=== PATIENT | female | born 1950 | race Caucasian/White ===

== ENCOUNTER 2023-07-08 14:36 | Emergency (ER) | payer MEDICARE, MEDICAID, SELFPAY ==
[2023-07-08] VITALS (8 sets, daily range): BP systolic 102–140; BP diastolic 46–88; PULSE 71–78; RESP 19–20; TEMP 37.4–37.8; O2SAT 91–97; BMI 51.7
--- NOTE | 2023-07-08 15:30 | ECG_ITS ---
APPROVED REPORT Exam: Resting ECG HR:70 bpm ECG Measurements Heart Rate 70 AXES ME 171 P 28 QRSd 109 QRS -17 QT 387 T 16 QTc 408 Conclusion SINUS RHYTHM LOW QRS VOLTAGE IN PRECORDIAL LEADS [QRS DEFLECTION < 1.0 mV IN CHEST LEADS] POSSIBLE ANTERIOR MYOCARDIAL INFARCTION , OF INDETERMINATE AGE [30 ms Q WAVE IN V3/V4, OR R < 0.2 mV IN V4] ABNORMAL ECG UNCONFIRMED REPORT Electronically signed by : Nadeem Greer MD 07/10/2023 17:14:11
--- NOTE | 2023-07-08 15:43 | XR_ITS ---
FINAL REPORT CLINICAL HISTORY: dizziness, fall COMPARISON: None FINDINGS: A single portable view of the chest was obtained. The heart size and pulmonary vascularity are within normal limits. The mediastinum is within normal limits. No acute pulmonary abnormality is identified. The bony thorax is intact. IMPRESSION: No active cardiopulmonary disease. Reviewed, Interpreted and Dictated by Erick Gracia III, MD Transcribed by Daria York Authenticated and [facility]
[2023-07-08 15:53] LABS: Basophils % 0.1 % (0.1-2.0); Eosinophils # 0.1 K/mm3 (0.0-0.4); Eosinophils % 0.7 % (0.1-12.0); Hematocrit 31.9 % (37.0-47.0); Hemoglobin 11.8 g/dL (12.2-16.2); Lymphocytes # 1.2 K/mm3 (0.7-4.5); Lymphocytes % 8.9 % (10-50); Mean Corpuscular HGB Conc 36.9 g/dL (31.8-35.4); Mean Corpuscular Hemoglobin 33.2 pg (27.0-31.2); Mean Platelet Volume 12.3 fl (7.4-10.4); Monocytes # 0.6 K/mm3 (0.1-1.0); Monocytes % 4.5 % (1.7-9.3); Neutrophils # 11.2 K/mm3 (1.8-7.8); Neutrophils % 85.7 % (37.0-80.0); Platelet Count 111 K/mm3 (142-424); Red Blood Count 3.55 M/mm3 (4.20-5.40); Red Cell Distribution Width 14.5 % (11.5-17.5)
[2023-07-08 16:00] LABS: Alanine Aminotransferase 16 U/L (12-78); Albumin Level 4.2 g/dl (3.5-5.0); Albumin/Globulin Ratio 1.3 (1.1-1.8); Alkaline Phosphatase 68 U/L (38-126); Anion Gap 12.1 mEq/L (5-15); Aspartate Amino Transferase 30 U/L (14-36); Bilirubin,Total 0.7 mg/dl (0.2-1.3); Blood Urea Nitrogen 35 mg/dl (7-17); Calcium 9.8 mg/dl (8.4-10.2); Carbon Dioxide 33 mmol/L (22.0-30.0); Chloride 96 mmol/L (98-107); Creatinine Clearance Estimated 30 mL/min (50-200); Estimated Glomerular Filt Rate 40 ml/min (>60); GFR (African American) 48 ML/MIN (>60); Globulin 3.2 g/dL (1.3-3.2); Glucose 169 mg/dl (74-100); Potassium 3.1 mmoL/L (3.5-5.1); Sodium 138 mmol/L (136-145); Total Protein,Serum 7.4 g/dl (6.3-8.2)
[2023-07-08 16:02] LABS: Activated Partial Thrombo Time 29.3 seconds (22.8-30.6)
--- NOTE | 2023-07-08 16:12 | HMH.EDGENADL ---
Discharge Plan Disposition Patient Disposition: Home, Self-Care Chief Complaint: Dizziness Referrals Follow up/Referrals: Giselle Sarabia PA [Primary Care Provider] - See instructions Activity Restrictions/Add. Instructions Additional Instructions/Restrictions: Call your family doctor to establish care for this visit to the emergency department and schedule follow-up within 48 hours to ensure improvement. If you have any worsening of your condition or any other concerning signs or symptoms, return to the emergency department or your primary care doctor for further evaluation. Have them follow-up your blood work including electrolytes and blood counts. Clinical Impressions Clinical Impression: Dizziness, Acute dehydration Discharge ED Provider: Ever [facility] Adult HPI General Chief complaint: Dizziness Stated complaint: dizzy ao fell Time Seen by Provider: 07/08/23 15:02 Mode of Arrival: Wheelchair Source of Information: Patient Limitations: No Limitations Description of Symptoms (Recalled from ER Triage Doc. by RN): 73 yo F presents to ED with c/o urinary urgency, confusion, weakness, dizziness. pt reports symptoms began last night. History of Present Illness HPI narrative: 73-year-old female history of hypertension, hyperlipidemia, diabetes, CHF presenting with dizziness and fall. Patient states that she sat up on the side of her bed, tried to stand up, felt lightheaded, slid down onto her bed and off to the side. Did not sustain any trauma. Did not hit her head or lose consciousness. Since that time, patient states that she has felt generally weak, intermittently dizzy. Usually needs help ambulating, this is not changed, for family at bedside. Patient denies chest pain, shortness of breath, nausea or vomiting, recent illness, hearing difficulties, palpitations, PND orthopnea, or any other concerns. Related Data Allergies Allergy/AdvReac Type Severity Reaction Status Date / Time CORTISONE Allergy Unknown ELEVATED Uncoded 08/06/17 14:58 BLOOD PRESSURE PREDNISONE Allergy Unknown ELEVATED Uncoded 08/06/17 14:58 BLOOD PRESSURE [facility] Disclaimer: The information contained in this section may have been updated after the patient was seen, as this information can be updated by other users. Social History Smoking Status: Never smoker alcohol intake: never current occupational status: retired Travel in the last 8 weeks: None ROS Obtained: Yes All systems reviewed & no additional complaints except as documented Physical Exam General General appearance: alert and in no apparent distress Head Head exam: atraumatic and normocephalic Eye Eye exam: Present normal appearance, PERRL and EOMI ENT ENT exam: Present mucous membranes moist Neck Neck exam: Present normal inspection, full ROM and trachea midline Respiratory Respiratory exam: Present normal lung sounds bilaterally; Absent respiratory distress, wheezes, stridor, accessory muscle use or prolonged expiratory phase Cardiovascular Cardiovascular exam: Present regular rate and normal rhythm Abdominal Exam Abdominal exam: Present soft; Absent distention, tenderness, guarding, rebound, rigidity or normal bowel sounds Extremities Exam Extremities exam: Present edema (nonpitting) Neurological Exam Neurological exam: Present alert, oriented X3, CN II-XII intact and normal gait; Absent motor sensory deficit Skin Skin exam: Present warm and dry; Absent diaphoresis or erythema Medical Decision Making Medical Records Medical records reviewed: Yes I reviewed the patient's medical records. Teto Inquiry Pt receiving controlled substance: No Teto was queried for this patient: No Vital Signs: 07/08/23 14:37 07/08/23 16:54 07/08/23 17:12 Temperature 100.0 F H Temperature Source Oral Pulse Rate 71 72 Pulse Rate [Left Radial] 74 Respiratory Rate 19 20 Blood Pressure 109/46 L 131/71 Blood Pressure [Right Arm] 1
[2023-07-08 16:13] LABS: MANUAL DIFFERENTIAL MANUAL DIFFERENTIAL (MANUAL DIFF)
[2023-07-08 16:18] LABS: T4 (Thyroxine) 7.2 ug/dl (5.53-11.0)
[2023-07-08 16:26] LABS: VBG Base Excess 5.9 mmol/L (-2.4-2.3); VBG HCO3 30.8 mmol/L (23-30); VBG Oxygen Saturation 72.3 % (50-70); VBG PH 7.39 mmol/L (7.31-7.41); VBG PO2 38.8 mmol/L (28-40); VBG Total CO2 32.3 mmol/L (23-27)
--- NOTE | 2023-07-08 16:28 | PC.NURSE ---
Pt. ambulated and from bathroom with x 2 assistance.
[2023-07-08 16:30] LABS: Acetone, Serum (Rapid) None Detected (None Detect)
[2023-07-08 16:31] LABS: VBG PCO2 51.5 mmol/L (35-51)
[2023-07-08 16:31] LABS: Thyroid Stimulating Hormone 1.44 uIU/mL (0.465-4.68)
[2023-07-08 16:34] LABS: Creatine Kinase 52 U/L (30-135)
--- NOTE | 2023-07-08 16:35 | PC.NURSE ---
Medic @ BS obtaining
[2023-07-08 16:39] LABS: Microscopic, Urine URINE MICROSCOPIC (MICROSCOPIC)
[2023-07-08 16:41] LABS: Appearance,Urine CLEAR (Clear); Bilirubin,Urine Negative (Negative); Blood, Urine Negative (Negative); Color,Urine YELLOW (Yellow); Glucose,Urine (UA) Negative (Negative); Ketones,Urine Negative (Negative); Leukocyte Esterase,Urine Negative (Negative); Nitrate,Urine Negative (Negative); PH,Urine 5.5 (5.0-8.5); Protein,Urine Negative (Negative); Specific Gravity, Urine 1.015 (1.005-1.030); Urobilinogen,Urine 0.2 EU/dl (0.2)
[2023-07-08 16:42] LABS: Troponin I < 0.01 ng/ml (0.00-0.034)
[2023-07-08 16:46] LABS: Eosinophils % 1 % (0-3); Lymphocytes % 11 % (10-50); Monocytes % 2 % (2-9); Neutrophils % 86 % (42-76); Platelet Estimate Slight Decrease; RBC Morphology Normal; Total Cells Counted 100
[2023-07-08 16:47] LABS: Lactic Acid 1.4 mmol/L (0.7-2.1)
[2023-07-08 16:58] LABS: Bacteria,Urine Trace /lpf; WBC,Urine Occasional #/hpf (0-3)
--- NOTE | 2023-07-08 16:58 | PC.NURSE ---
COVID/FLU SWAB SENT TO LAB
[2023-07-08 17:09] LABS: Coronavirus 19, PCR Not Detected (NotDetected); Influenza A, PCR Not Detected (NotDetected); Influenza B, PCR Not Detected (NotDetected)
--- NOTE | 2023-07-08 17:09 | PC.NURSE ---
Rounded on patient; fall risk bracelet and high fall risk star placed on patients bed. Call light within reach of patient
[2023-07-08 17:14] LABS: NT Pro Brain Natriuretic Pep. 581 pg/mL (0-125)
--- NOTE | 2023-07-08 17:24 | PC.NURSE ---
Unsuccessful attempts x 2 for 2nd blood draw; lab aware to come stick
[2023-07-08 20:12] LABS: Troponin I < 0.01 ng/ml (0.00-0.034)
[2023-07-08 23:20] LABS: POC Glucose,Bedside 188 (70-110)
== END 2023-07-08 20:48 | disposition home or self-care (01) ==
PROVIDERS: Emergency Provider Emergency Medicine; PCP Nurse Practitioner Family
DX: E86.0 Dehydration (principal); E87.6 Hypokalemia; R42 Dizziness and giddiness; W06.XXXA Fall from bed, initial encounter; I11.0 Hypertensive heart disease with heart failure; I50.9 Heart failure, unspecified; E78.5 Hyperlipidemia, unspecified; E11.9 Type 2 diabetes mellitus without complications
CPT/HCPCS: 71045; 80053; 81001; 82009; 82550; 82803; 82962; 83605; 83880; 84436; 84443; 84484; 85007; 85025; 85730; 87040; 87636; 93005; 96360; 99284

== ENCOUNTER 2025-03-24 11:37 | Emergency (ER) | payer MEDICARE, MEDICAID, SELFPAY ==
[2025-03-24 11:39] VITALS: BP 111/63; PULSE 82; RESP 18; TEMP 36.9; O2SAT 92; BMI 246.4
--- OUTSIDE RECORDS SUMMARY | 2025-03-24 11:45 | XMS_ITS | Clinical Summary ---
Author Organization [facility] [place] Address [address] [place] [address] Care Team Providers Care Professional Wrestler Name Role Phone Giselle Sarabia APRN Primary Care Provider [phone] Allergies Active Allergy Reactions Criticality Noted Date Comments Enoch Inhibitors Angioedema High 07/26/2023 Took with Augmentin caused anaphylaxis per patient and daughter Amoxicillin-Pot Clavulanate Angioedema High 07/26/2023 Unable to determine if ENOCH inhib vs Augmentin Penicillins Other - please document in the comment field Low 01/15/2024 Sulfa Drugs Angioedema High 01/15/2024 Took with Augmentin and an enoch inhibitor caused anaphylaxis per patient and daughter Medications celecoxib (CeleBREX) 100 MG capsule Take 1 capsule (100 mg) by mouth in the morning. Active potassium chloride CR (Klor-Con) 10 MEQ ER tablet Take 1 tablet (10 mEq) by mouth in the morning. Active nebivolol (Bystolic) 5 MG tablet Take 1 tablet (5 mg) by mouth in the morning. Active allopurinol (Zyloprim) 300 MG tablet Take 1 tablet (300 mg) by mouth in the morning. Active buPROPion XL (Wellbutrin XL) 150 MG 24 hr tablet Take 1 tablet (150 mg) by mouth every morning. Do not crush, chew, or split. Active Multiple Vitamin (multivitamin) tablet Take 1 tablet by mouth in the morning. Active acetaminophen (Tylenol 8 Hour) 650 MG ER tablet Take 1 tablet (650 mg) by mouth every 8 hours as needed for mild pain. Do not crush, chew, or split. Active rOPINIRole (Requip) 1 MG tablet Take 1 tablet (1 mg) by mouth in the morning and 1 tablet (1 mg) in the evening and 1 tablet (1 mg) before bedtime. Active atorvastatin (Lipitor) 10 MG tablet Take 1 tablet (10 mg) by mouth nightly. Active desvenlafaxine succinate er (Pristiq) 25 MG 24 hr tablet Take 1 tablet (25 mg) by mouth in the morning. Active gabapentin (Neurontin) 600 MG tablet Take 1 tablet (600 mg) by mouth in the morning and 1 tablet (600 mg) in the evening and 1 tablet (600 mg) before bedtime. Active insulin glargine (Lantus SoloStar, Basaglar) 100 UNIT/ML injection pen Inject 45 Units under the skin daily. Active bumetanide (Bumex) 2 MG tablet Take 0.5 tablets (1 mg) by mouth daily. 15 tablet Active pen needle, diabetic 31G X 5 MM misc Use as directed with insulin pen. 100 each 11 Active insulin lispro 100 UNIT/ML injection pen Inject 14 Units under the skin 3 (three) times a day with meals. 15 mL 3 5 Active Blood Glucose Monitoring Suppl device Test three times daily 1 each 5 Active glucose blood test strip Test three times daily 300 strip 11 5 Active Lancets misc Test three times daily 300 each 11 5 Active Alcohol Sheets (Alcoh-Wipe) sheet Use as directed. 300 each 11 5 Active insulin lispro 100 UNIT/ML injection pen Inject under the skin 3 (three) times daily with meals per correction scale as follows: blood sugar 150-199 use 2 unit, 200-249 use 4 units, 250-299 use 6 units, 300-349 use 8 units, 350-399 use 10 units, >399 use 12 units and call provider. 5 Active Active Problems Problem Noted Date Diagnosed Date Altered mental status 10/14/2024 Sepsis, unspecified organism 10/12/2024 Abscess 10/12/2024 Obesity (BMI 30-39.9) 10/12/2024 Hyperosmolar hyperglycemic state (HHS) Acute encephalopathy 10/12/2024 RLS (restless legs syndrome) 10/12/2024 Diabetic polyneuropathy asso ciated with type 2 diabetes mellitus 10/12/2024 Sepsis 10/12/2024 Wound infection after surgery 04/22/2024 Diverticulitis of large inte jaskaran with abscess without bleeding 03/11/2024 Diverticulitis of large inte jaskaran with perforation and abscess without bleeding 03/03/2024 WING on CPAP 02/04/2024 Overview (02/04/2024): AHI 28 Hypertension 02/04/2024 Colovesical fistula 01/15/2024 Gout 09/10/2023 Class III obesity with body mass index (BMI) of 40.0 or higher 07/24/2023 Angioedema of tongue 07/24/2023 Diverticulitis 07/19/2023 Type 2 diabetes mellitus 09/26/2022 Viral bronchitis 08/22/2022 Rheumatoid arthritis 06/26/2022 Vitamin D deficiency 05/04/2022 Hyperlipidemia 05/04/2022 Resolved Problems Problem Noted Date Diagnosed Date Resolved Date Wound infection 05/19/2024 05/19/2024 Family History Medical History Relation Name Comments Cancer Father Brain Aneurysm Mother Anesthesia problems Neg Hx Malig Hyperthermia Neg Hx Relation Name Status Comments Father Mother Social History Tobacco Use Types Packs/Day Years Used Date Smoking Tobacco: Never Smokeless Tobacco: Never Tobacco Cessation:Counseling Given: Yes Alcohol Use Standard Drinks/Week Comments Never 0 (1 standard drink = 0.6 oz pur e alcohol) Humiliation, Afraid, Rape, and Kick questionnair e Answer Date Recorded Within the last year, have y ou been afraid of your partner or ex-partner? No 10/12/2024 Within the last year, have y ou been humiliated or emotionally abused in other ways by your partner or ex-partner? No Within the last year, have y ou been kicked, hit, slapped, or otherwise physically hurt by your partner or ex-partner? No 10/12/2024 Within the last year, have y ou been raped or forced to have any kind of sexual activity by your partner or ex-partner? No 10/12/2024 Social Connection and Isolation Panel Answer Date Recorded In a typical week, how many times do you talk on the phone with family, friends, or neighbors? More than three times a week 10/12/2024 How often do you get togethe r with friends or relatives? More than three times a week 10/12/2024 How often do you attend [facility] or caodaism services? More than 4 times per year 10/12/2024 Active Member of Clubs or Organizations Not on f ile 10/12/2024 Attends Club or Organization Meetings Not on alicia e 10/12/2024 Marital Status Not on file 10/12/2024 AUDIT-C Answer Date Recorded Q1: How often do you have a drink containing alcohol? Never 10/12/2024 Q2: How many drinks containi ng alcohol do you have on a typical day when you are drinking? Patient does not drink Q3: How often do you have si x or more drinks on one occasion? Never 10/12/2024 Overall Financial Resource Strain (CARDIA) Answe r Date Recorded How hard is it for you to pa y for the very basics like food, housing, medical care, and heating? Not hard at all 10/12/2024 [facility] - Occupational Stress Questionnaire Answer Date Recorded Do you feel stress - tense, restless, nervous, or anxious, or unable to sleep at night because your mind is troubled all the time - these days? To some extent 07/25/2023 Exercise Vital Sign Answer Date Recorde d On average, how many days pe r week do you engage in moderate to strenuous exercise (like a brisk walk)? 0 days 10/12/2024 On average, how many minutes do you engage in exercise at this level? 0 min 10/12/2024 Hunger Vital Sign Answer Date Recorded Within the past 12 months, y ou worried that your food would run out before you got the money to buy more. Never true 10/12/19 25 Within the past 12 months, t he food you bought just didn't last and you didn't have money to get more. Never true 10/12/2024 PRAPARE - Transportation Answer Date Re corded In the past 12 months, has l ack of transportation kept you from medical appointments or from getting medications? No 09/20 In the past 12 months, has l ack of transportation kept you from meetings, work, or from getting things needed for daily living? No 10/12/2024 Housing Stability Vital Sign Answer Jona e Recorded In the last 12 months, was t here a time when you were not able to pay the mortgage or rent on time? No 05/19/2024 In the last 12 months, how many places have you lived? 1 05/19/2024 In the last 12 months, was t here a time when you did not have a steady place to sleep or slept in a long-term (including now)? No 05/19/2024 Housing Stability Vital Sign Answer Jona e Recorded In the last 12 months, was t here a time when you were not able to pay the mortgage or rent on time? No 10/12/2024 In the past 12 months, how m any times have you moved where you were living? 1 10/12/2024 Homeless in the Last Year Not on file 2024 CAGE ASSESSMENT Answer Date Recorded Cage unable to access Not on file 04/28/2024 Cage max number of drinks Not on file 2023 Cage Beverages a week Not on file 04/28/2024 Have you ever felt you should CUT down on your d rinking? 0 04/28/2024 Have you been ANNOYED by people criticizing your drinking? 0 04/28/2024 Have you felt GUILTY about your drinking? 0 04/28/2024 Have you had a drink first t lisa in the morning ([employer]) to steady your nerves or to get rid of a hangover? 0 04/28/2024 CAGE Questionnaire Score 0 024 Utilities Answer Date Recorded In the past 12 months has th e electric, gas, oil, or water company threatened to shut off services in your home? No 10/12/2024 Comments No Sex and Gender Information Value Date Recorded Sex Assigned at Female 10/11/2024 6:10 PM EST Legal Sex Female 8:32 PM EDT Gender Identity Not on file Sexual Orientation Not on file Last Filed Vital Signs Vital Sign Reading Time Taken Comments Blood Pressure 155/81 10/27/2024 12:49 PM EDT Pulse 71 10/27/2024 12:49 PM EDT Temperature 36.6 C (97.8 F) 10/27/2024 12:49 PM EDT Respiratory Rate 16 10/27/2024 12:49 PM EDT Oxygen Saturation 98% 10/27/2024 12:49 PM EDT Inhaled Oxygen Concentration - - Weight 112 kg (246 lb 12.8 oz) 10/27/2024 12:49 PM EDT Height 157.5 cm (5' 2 ) 10/27/2024 12:49 PM EDT Body Mass Index 45.14 10/27/2024 12:49 PM EDT Plan of Treatment Health Maintenance Due Date Last Done Comments [facility]-Bone Density Scan 1949 [facility]-Depression Screening 1949 [facility]-Medicare Annual Wellness (AWV) 1950 [facility]-Infant/Child/Adol SDOH Screenings 1949 Diabetes: Dental Exam 1959 CT Colonography 1994 Colonoscopy 1994 FIT-DNA 1994 FIT 1994 FOBT 1994 Sigmoidoscopy 1994 [facility]-Colorectal Cancer Screening 1994 [facility]-Zoster Vaccines (1 of 2) 1999 [facility]-DTaP,Tdap,and Td Vaccines (2 - Td or Tdap) 01/21/2023 01/21/2013 [id number] Vaccine (3 - season) 2024 11/18/2020, 10/18/2020 [facility]-RSV Vaccine: 60+ Years or (1 - 1-dose 75+ series) 2024 [facility]-Diabetes: Hemoglobin A1C 01/11/2025, 04/15/2024, 07/24/2023 [facility]- SDOH Screenings 04/11/2025 [facility]-Adult SDOH Screenings 04/11/2025 10/12/2024 [facility]-Influenza Vaccine (#1) 04/19/202506/10, 06/26/2022, 07/02/2019 [facility]-Pneumococcal Vaccine: 50+ Years Completed 04/22/2020, 07/27/2016, 06/24/2015 [facility]-Hepatitis C Screening Completed 07/24/2023 [facility]-Obesity Intervention Completed 025, 10/11/2024, 10/11/2024, Additional history exists HPV Vaccines Aged Out No longer eligi ble based on patient's age to complete this topic [facility]-HIB Vaccines Aged Out No longer e ligible based on patient's age to complete this topic [facility]-Hepatitis A Vaccines Aged Out No longer eligible based on patient's age to complete this topic UKY-IPV Vaccines Aged Out No longer e ligible based on patient's age to complete this topic [facility]-Rotavirus Vaccines Aged Out No lo nger eligible based on patient's age to complete this topic Medical Devices Implanted Type Area Circus Supervisor Device Identifier Shelf Expiration Date Model / Serial / Lot Knee Knee Bilateral: Knee Procedures Procedure Name Priority Date/Time Associated Diagnosis Comments HEMOGLOBIN A1C Routine 10/12/2024 5:13 AM EST ACUTE HEPATITIS PANEL Routine 07/24/2023 4:43 PM EST from Last 3 Months or Most Recently Relevant to Health Maintenance Results * (ABNORMAL) Hemoglobin A1c (10/12/2024 5:13 AM EST) Hemoglobin A1c 9.3(H) <5.7 % 10/12/2024 6:21 AM EST [facility] Blood Venous blood specimen / Unknown Venipuncture / Unknown 10/12/2024 5:13 AM EST 10/12/2024 5:19 AM EST Narrative [facility] - 10/12/2024 6:21 AM EST HA1C Interpretive Data: Diagnosis of Diabetes: Diabetic > or = 6.5% Pre-diabetic 5.7 to 6.4% Non-diabetic < or = 5.6% Glycemic Targets for Type I and Type II Diabetics: Non- Adults <7.0% Adults <6.0% Children and Adolescents <7.5% Source: [place] Diabetes Association. Standards of medical care in diabetes,2017. Diabetes Care.2017:40 (suppl 1):S1-S135. HbA1c assay performed by an ion-exchange chromatography method that is certified traceable to the DCCT. Bradley Yi APRN LAB BLOOD ORDERABLES Final Result [facility] [address] [place] [address] * Acute Hepatitis Panel (07/24/2023 4:43 PM EST) Hepatitis B Surf Antigen Negative Negative 07/24/2023 7:24 PM EST [facility] Hepatitis C Antibody Negative Negative 07/24/2023 7:24 PM EST [facility] Hepatitis A Antibody IgM Negative Negative 07/24/2023 7:24 PM EST [facility] Hepatitis B Core Antibody IgM Negative Negative 07/24/2023 7:24 PM EST [facility] Blood Venous blood specimen / Unknown Venipuncture / Unknown 07/24/2023 4:43 PM EST 07/24/2023 4:50 PM EST Giselle Wilkins APRN, DNP LAB BLOOD ORDERABLE S Final Result Performing Organization Address City/[facility] de Phone Number [facility] [address] [place] [address] from Last 3 Months or Most Recently Relevant to Health Maintenance Insurance [facility] MEDICARE Advance Directives * Full Code (Latest Code Status on File) Date Activated Date Inactivated Comments 10/12/2024 1:36 AM 10/19/2024 6:54 PM Question Answer Comments Patient has decision-making capacity? No Healthcare Surrogate: Adult child of the patient Name of Healthcare Surrogate: son Mervin Black * Full Code Date Activated Date Inactivated Comments 05/19/2024 1:58 AM 05/19/2024 4:48 PM Question Answer Comments Patient has decision-making capacity? Yes * Full Code Date Activated Date Inactivated Comments 04/22/2024 5:56 PM 04/29/2024 7:13 PM Question Answer Comments Patient has decision-making capacity? Yes * Full Code Date Activated Date Inactivated Comments 04/15/2024 8:24 PM 04/19/2024 1:58 PM Question Answer Comments Patient has decision-making capacity? Yes * Full Code Date Activated Date Inactivated Comments 04/15/2024 6:53 PM 04/15/2024 8:24 PM Question Answer Comments Patient has decision-making capacity? Yes Care Teams Professional Wrestler Relationship Specialty Start Date End Date Giselle Sarabia APRN [address] [place] [address] PCP - General 08/06/23
--- OUTSIDE RECORDS SUMMARY | 2025-03-24 11:45 | XMS_ITS | Clinical Summary ---
Author Organization [facility] Address [address] [place] [address] Care Team Providers Care Maintenance Of Way Superintendent Name Role Phone CornellGiselle APRN Primary Care Prov ider Allergies Active Allergy Reactions Criticality Noted Date Comments Enoch Inhibitors Angioedema High 07/26/2023 Amoxicillin-Pot Clavulanate Angioedema High 11/22/19 24 Medications albuterol (PROVENTIL) (2.5 MG/3ML) 0.083% nebulizer solution 3 Active benazepril (LOTENSIN) 20 MG tablet 3 Active bumetanide (BUMEX) 2 MG tablet Take 1 tablet by mouth Daily. 3 Active celecoxib (CeleBREX) 100 MG capsule Take 1 capsule by mouth Daily. 3 Active glipizide (GLUCOTROL XL) 10 MG 24 hr tablet Take 1 tablet by mouth Daily. 3 Active hydroCHLOROthia zide (HYDRODIURIL) 25 MG tablet Take 1 tablet by mouth Daily. 3 Active hydroxychloroqu ine (PLAQUENIL) 200 MG tablet Take 1 tablet by mouth 2 (Two) Times a Day. 3 Active levocetirizine (XYZAL) 5 MG tablet Take 1 tablet by mouth Every Evening. 3 Active metFORMIN (GLUMETZA) 1000 MG (MOD) 24 hr tablet Take 1 tablet by mouth Daily With Breakfast. 3 Active nebivolol (BYSTOLIC) 5 MG tablet Take by mouth Daily. 3 Active potassium chloride 10 MEQ CR tablet Take 1 tablet by mouth Daily. 3 Active Ozempic, 0.25 or 0.5 MG/DOSE, 2 MG/3ML solution pen-injector 3 Active pregabalin (LYRICA) 150 MG capsule Take 1 capsule by mouth 2 (Two) Times a Day. 3 Active HumaLOG KwikPen 100 UNIT/ML solution pen-injector 3 Active amLODIPine (NORVASC) 5 MG tablet Take 1 tablet by mouth Daily. 3 Active buPROPion XL (WELLBUTRIN XL) 150 MG 24 hr tablet Take 1 tablet by mouth Daily. Active allopurinol (ZYLOPRIM) 300 MG tablet Take 1 tablet by mouth Daily. Active Lantus SoloStar 100 UNIT/ML injection pen Inject 70 Units under the skin into the appropriate area as directed Every Night. 4 Active hydrOXYzine (ATARAX) 25 MG tablet Take 1 tablet by mouth Daily. Active Active Problems Problem Noted Date Diagnosed Date Hyperlipidemia Hypertension Sleep apnea Overview (02/13/2023): AHI 28 Family History Medical History Relation Name Comments Throat cancer Father 72 Cerebral aneurysm Mother 52 Relation Name Status Comments Brother 2 Father 72 Mother 52 Social History Tobacco Use Types Packs/Day Years Used Date Smoking Tobacco: Never Passive Smoke Exposure: Never Smokeless Tobacco: Never Tobacco Cessation:Counseling Given: Not Answered Alcohol Use Standard Drinks/Week Comments Never 0 (1 standard drink = 0.6 oz pur e alcohol) Abuse Screen Answer Date Recorded Unsafe at Home or Work/School Not on file Feels Threatened by Someone? Not on file 04/2023 Does Anyone Keep You from Co ntacting Others or Doint Things Outside the Home? Not on file 05/27/2023 Physical Sign of Abuse Present Not on file 1 Housing Stability Answer Date Recorded Current Living Arrangements Not on file 04/2023 Potentially Unsafe Housing Conditions Not on alicia e 05/27/2023 Family and Community Support Answer Jona e Recorded Help with Day-to-Day Activities Not on file 05/27/2023 Lonely or Isolated Not on file 05/27/2023 Employment Answer Date Recorded Do you want help finding or keeping work or a gena b? Not on file 05/27/2023 Disabilities Answer Date Recorded Concentrating, Remembering, or Making Decisions Difficulty Not on file 05/27/2023 Doing Errands Independently Difficulty Not on fi le 05/27/2023 Education Answer Date Recorded Help with school or training? Not on file Preferred Language Not on file 05/27/2023 Comments Unknown Sex and Gender Information Value Date Recorded Sex Assigned at Not on file Legal Sex Female 11:28 AM EDT Gender Identity Not on file Sexual Orientation Not on file Last Filed Vital Signs Vital Sign Reading Time Taken Comments Blood Pressure 120/68 11/22/2023 11:17 AM EDT Pulse 78 11/22/2023 11:17 AM EDT Temperature - - Respiratory Rate - - Oxygen Saturation 96% 11/22/2023 11:17 AM EDT Inhaled Oxygen Concentration - - Weight 118 kg (260 lb 6.4 oz) 11/22/2023 11:17 A M EDT Height 165.1 cm (5' 5 ) 11/22/2023 11:17 AM EDT Body Mass Index 43.33 11/22/2023 11:17 AM EDT Plan of Treatment Health Maintenance Due Date Last Done Comments DXA SCAN 1949 LIPID PANEL 1949 DIABETIC EYE EXAM 1959 DIABETIC FOOT EXAM 1959 URINE MICROALBUMIN-CREATININ E RATIO (uACR) 1959 COLOGUARD 1994 COLON CANCER SCREENING 5 YEA R SIGMOIDOSCOPY 1994 COLONOSCOPY [address] CANCER SCREENING 1994 CT COLONOGRAPHY 1994 FECAL OCCULT BLOOD TEST 1994 FIT Testing (1 year) 1994 ZOSTER VACCINE (1 of 2) 1999 ANNUAL WELLNESS VISIT 01/15/2023 TDAP/TD VACCINES (2 - Td or Tdap) 01/21/2023 013 COVID-19 Vaccine (3 - 2023-2 5 season) 2024 11/18/2020, 10/18/2020 RSV Vaccine - Adults (1 - 1- dose 75+ series) 2024 HEMOGLOBIN A1C 04/11/2025 10/12/2024, 08/2 03/2024, 07/24/2023, Additional history exists INFLUENZA VACCINE 05/19/2025 06/10/2023, , 07/02/2019 Pneumococcal Vaccine 50+ Completed 020, 07/27/2016, 06/24/2015 HEPATITIS C SCREENING Completed 07/24/2023 Insurance [facility] MEDICAID [employer] MEDICARE ADVANTAGE Care Teams Maintenance Of Way Superintendent Relationship Specialty Start Date End Date Giselle Sarabia APRN [address] [place] [address] PCP - General Family Medicine 11/06/23
--- NOTE | 2025-03-24 12:00 | ED_ITS ---
<Statement entered by Jonnie Saini MD - 03/24/25 16:06> I consulted the TORIN, and we discussed the complexity of the problems being addressed. I approved the treatment and management plan for this patient's care in the emergency department, thus performing a substantial portion of the medical decision making. Jef Saini MD Discharge Plan Disposition Patient Disposition: Home, Self-Care Condition: Good Prescriptions Prescriptions: No Action gabapentin 600 mg tablet 600 mg PO TID Patient Comments: TAKE 1 TABLET BY MOUTH 3 TIMES A DAY ropinirole 1 mg tablet 1 mg PO TID Patient Comments: TAKE 1 TABLET 3 TIMES A DAY BY ORAL ROUTE DIRECTED FOR 90 DAYS, FOR RESTLESS LEGS. trazodone 50 mg tablet 50 mg PO ACHS Patient Comments: TAKE 1 TABLET BY MOUTH EVERY DAY AT BEDTIME FOR 30 DAYS atorvastatin 10 mg tablet 10 mg PO DAILY Patient Comments: TAKE 1 TABLET BY MOUTH EVERYDAY AT BEDTIME atorvastatin 10 mg tablet 10 mg PO DAILY Patient Comments: TAKE 1 TABLET BY MOUTH EVERYDAY AT BEDTIME alendronate 70 mg tablet 70 mg PO WEEKLY Patient Comments: TAKE 1 TABLET BY MOUTH EVERY WEEK tramadol 50 mg tablet 50 mg PO BID Patient Comments: TAKE 1 TABLET BY MOUTH TWICE A DAY cyanocobalamin (vitamin B-12) 1,000 mcg/mL solution 1,000 mcg SQ MONTHLY Patient Comments: INJECT 1 ML BY SUBCUTANEOUS ROUTE EVERY MONTH allopurinol 300 mg tablet 300 mg PO DAILY Patient Comments: TAKE 1 TABLET EVERY DAY BY ORAL ROUTE DIRECTED FOR 90 DAYS, FOR GOUT. allopurinol 300 mg tablet 300 mg PO DAILY Patient Comments: TAKE 1 TABLET EVERY DAY BY ORAL ROUTE DIRECTED FOR 90 DAYS, FOR GOUT. celecoxib 100 mg capsule 100 mg PO DIRECTED Patient Comments: TAKE 1 CAPSULE BY MOUTH EVERY DAY DIRECTED Novolin N FlexPen 100 unit/mL (3 mL) insulin pen 100 unit SQ TID Patient Comments: INJECT 20 UNITS 3 TIMES A DAY BY SUBCUTANEOUS ROUTE DIRECTED FOR 30 DAYS, FOR WITH MEALS. potassium chloride 10 mEq tablet,ER particles/crystals 10 meq PO DAILY Patient Comments: TAKE 1 TABLET BY MOUTH EVERY DAY (DME) pen needle, diabetic [BD Ultra-Fine Mini Pen Needle] 31 gauge x 3/16 needle MISCELLANEOUS dapagliflozin propanediol [Farxiga] 10 mg tablet 10 mg PO DAILY Patient Comments: TAKE 1 TABLET EVERY DAY BY MOUTH FOR 90 DAYS FOR DIABETES/KIDNEYS. Kerendia 20 mg tablet 20 mg PO DAILY Patient Comments: TAKE 1 TABLET EVERY DAY BY MOUTH FOR 90 DAYS, FOR DIABETES/KIDNEYS. Kerendia 20 mg tablet 20 mg PO DAILY Patient Comments: TAKE 1 TABLET EVERY DAY BY MOUTH FOR 90 DAYS, FOR DIABETES/KIDNEYS. Mounjaro 2.5 mg/0.5 mL pen injector 2.5 mg SQ WEEKLY Patient Comments: INJECT 0.5 ML SUBCUTANEOUSLY ONE TIME PER WEEK FOR 28 DAYS Mounjaro 5 mg/0.5 mL pen injector 5 mg SQ WEEKLY Patient Comments: INJECT 0.5 ML SUBCUTANEOUSLY ONE TIME PER WEEK FOR 28 DAYS Referrals Follow up/Referrals: Kanu Fuentes MD [Staff Physician, Pain Management] - See instructions Sepideh Lawrence PA [Primary Care Provider, Medical] - See instructions Nikolai Alegria MD [Referring, Medical] - See instructions Hector Simmons DO [Staff Physician, Family Practice] - See instructions Activity Restrictions/Add. Instructions Additional Instructions/Restrictions: Please return to the emergency department with any worsening signs or symptoms, please follow-up with new PCP, orthopedic physician, please utilize ibuprofen Tylenol rest, ice, as needed for symptomatic relief of your left shoulder pain. Clinical Impressions Clinical Impression: Localized osteoarthritis of left shoulder, Cervical spondylosis without myelopathy Instructions Patient Instructions: Shoulder Tendinopathy, DI for Shoulder Pain Print Language Print Language: Beninese Discharge ED Provider: Jonnie Saini Adult HPI General Chief complaint: PAIN Stated complaint: L arm pain/swelling Time Seen by Provider: 03/24/25 11:56 Mode of Arrival: Ambulatory Source of Information: Patient Description of Symptoms (Recalled from ER Triage Doc. by RN): PT presents for evaluation of left arm pain that she has had for 2 weeks. Pt reports she had a steriod shot yesterday by her PCP and was supposed to be getting evaluated for a DVT but she has not had the orders placed by her provider yet. Pt has limited ROM, strong pulse, brisk cap refill. Pt rates pain as a 10/10 History of Present Illness HPI narrative: 74-year-old female presents the emergency department with left arm pain and swelling for the last 2 weeks, patient states that she was seen by her PCP for this yesterday, had what sounds like an IM steroid injection with little no relief, is supposedly being evaluated for a left upper extremity DVT, she has not yet had the ultrasound orders placed yet, patient states that she is experiencing significant pain, she is taking some medication at home that starts with a D , however she is unsure of what this medication is. She is somewhat of a poor historian, but denies any fever chills chest pain, shortness of breath, did have what sound like an EKG performed at her PCPs office yesterday which yielded normal results, she denies any trauma or injury per history, denies any numbness or tingling, states the pain will start in the left shoulder/neck/trapezius region radiate down to her bicep region/cubital fossa area, difficulty with pain limiting range of motion, she denies any abdominal pain nausea vomiting constipation diarrhea, denies any urinary type symptomatology, she is a non-smoker, denies any alcohol or drug use, she admits to past medical history consistent with T2DM, hyperlipidemia, hypertension, she admits to what sounds like a partial colectomy several years ago for unknown reason. Please note that above description of symptoms, in this electronic medical record under categorization of recalled from ER triage doctor by RN are reflective of an initial nursing assessment, however, is not reflective of my full history and physical exam that was personally taken and clarified. Consequentially, this preceding description of symptoms, which may include the patient's categorized chief complaint in the EMR, do not reflect my personal clinical impression, and the ultimate description of history of present illness and patient stated complaints should be deferred to this section of the note. Unless stated otherwise or congruent with this section of the note, additional signs, symptoms, or incongruence should be interpreted as inaccurate with my clinical impression. Onset (ago): week(s) Related Data Home Medications ?Medication ?Instructions ?Recorded ?Confirmed alendronate 70 mg tablet 70 mg PO WEEKLY 03/24/2502/10 allopurinol 300 mg tablet 300 mg PO DAILY 03/24/2502/10 allopurinol 300 mg tablet 300 mg PO DAILY 03/24/2502/10 atorvastatin 10 mg tablet 10 mg PO DAILY 03/24/2502/10 atorvastatin 10 mg tablet 10 mg PO DAILY 03/24/2502/10 celecoxib 100 mg capsule 100 mg PO DIRECTED 03/24/25 cyanocobalamin (vitamin B-12) 1,000 mcg SQ MONTHLY 02/1003/24/25 1,000 mcg/mL injection solution dapagliflozin propanediol 10 mg 10 mg PO DAILY 5 03/24/25 tablet (Farxiga) finerenone 20 mg tablet (Kerendia) 20 mg PO DAILY 02/1003/24/25 finerenone 20 mg tablet (Kerendia) 20 mg PO DAILY 02/1003/24/25 gabapentin 600 mg tablet 600 mg PO TID 03/24/2503/24 insulin NPH isoph U-100 human 100 100 unit SQ TID 02/1003/24/25 unit/mL (3 mL) subcutaneous pen (Novolin N FlexPen) pen needle, diabetic 31 gauge x 03/24/25 03/24/2511/01 potassium chloride 10 mEq 10 meq PO DAILY 03/24/2502/10 tablet,extended release(part/cryst) ropinirole 1 mg tablet 1 mg PO TID 03/24/25 5 tirzepatide 2.5 mg/0.5 mL 2.5 mg SQ WEEKLY 03/24/25 subcutaneous pen injector (Mounjaro) tirzepatide 5 mg/0.5 mL 5 mg SQ WEEKLY 03/24/2502/10 subcutaneous pen injector (Mounjaro) tramadol 50 mg tablet 50 mg PO BID 03/24/25 trazodone 50 mg tablet 50 mg PO ACHS 03/24/2503/24 Allergies Allergy/AdvReac Type Severity Reaction Status Date / Time CORTISONE Allergy Unknown ELEVATED Uncoded 08/06/17 14:58 BLOOD PRESSURE PREDNISONE Allergy Unknown ELEVATED Uncoded 08/06/17 14:58 BLOOD PRESSURE [facility] Disclaimer: The information contained in this section may have been updated after the patient was seen, as this information can be updated by other users. Social History (Updated 07/08/23 @ 20:34 by Ever Parisi MD) Smoking Status: Never smoker alcohol intake: never current occupational status: retired Travel in the last 8 weeks?: None Have you lived/traveled outside [place] in past 30 days?: No Contact w/someone who lives/traveled outside US past 30 days?: No Exposure to someone with infectious disease in past 14 days?: No Do you have a fever (greater than 100.4 F or 38 C)?: No Have you tested positive for COVID-19?: No Exposed to someone with COVID-19 in past 14 days?: No Do you have a sore throat?: No Do you have a cough?: No Do you have any weakness?: No Do you have any diarrhea?: No Are you experiencing any unusual bleeding?: No Do you have any muscle aches/pain?: Yes Do you have any abdominal pain?: No Are you experiencing loss of taste or smell?: No ROS Obtained: Yes All systems reviewed & no additional complaints except as documented Physical Exam General General appearance: alert and in no apparent distress Head Head exam: atraumatic and normocephalic Eye Eye exam: Present PERRL and EOMI ENT ENT exam: Present mucous membranes moist Neck Neck exam: Present normal inspection Chest Chest inspection: Present normal inspection and symmetric chest wall rise Respiratory Respiratory exam: Present normal lung sounds bilaterally; Absent respiratory distress Cardiovascular Cardiovascular exam: Present regular rate and normal rhythm Abdominal Exam Abdominal exam: Present soft; Absent tenderness, guarding or rebound Extremities Exam Extremities exam: Present normal inspection, tenderness and other (Tenderness over the anterior shoulder joint, patient has extreme pain limited range of motion, cannot abduct, abduct, has difficulty with internal and external rotation of the left shoulder, has good chiropractic physician strength bilaterally, otherwise neurovascular intact); Absent full ROM Back Exam Back exam: Present normal inspection and full ROM; Absent tenderness, paraspinal tenderness or vertebral tenderness Neurological Exam Neurological exam: Present alert, oriented X3 and other (5 out of 5 strength in the bilateral lower extremities, as well as right upper extremity, deferred on the left upper extremity due to pain limited range of motion, but good chiropractic physician strength 5 out of 5, no gross sensation deficit.) Psychiatric Psychiatric exam: Present normal affect Skin Skin exam: Present warm and dry Medical Decision Making Medical Records Medical records reviewed: Yes I reviewed the patient's medical records. Screening: Per USPSTF and CDC recommendations, given the prevalence of disease in our region, it is our hospital?s policy to screen for HIV and viral Hepatitis for all patients aged 18 and over and those with ongoing risk factors. Teto Inquiry Pt receiving controlled substance: No Teto was queried for this patient: No Vital Signs: 03/24/25 11:39 03/24/25 14:54 Temperature 98.4 F 98.0 F Temperature Source Oral Oral Pulse Rate 72 Pulse Rate [Right] 82 Respiratory Rate 18 18 Blood Pressure 108/58 L Blood Pressure [Right Arm] 111/63 Blood Pressure Mean [Right Arm] 79 Blood Pressure Source Manual Cuff/ Auscultation Blood Pressure Source [Right Arm] Automatic Cuff Blood Pressure Position Sitting Blood Pressure Position [Right Arm] Sitting 02 Sat by Pulse Oximetry 92 L Oxygen Delivery Method Room Air Room Air Lab Data Lab results reviewed: Yes I reviewed the patient's lab results. Lab Results 03/24/25 13:00: WBC 8.5, RBC 3.98 L, Hgb 10.2 L, Hct 34.0 L, MCV 85.4, MCH 25.6 L, MCHC 30.0 L, RDW 17.1, Plt Count 262, MPV 10.4, Neut % (Auto) 70.7, Lymph % (Auto) 18.9, [place] % (Auto) 7.5, Eos % (Auto) 2.1, Baso % (Auto) 0.2, Neut # (Auto) 6.0, Lymph # (Auto) 1.6, [place] # (Auto) 0.6, Eos # (Auto) 0.2, Baso # (Auto) 0.0, Sodium 127 L, Potassium 3.5, Chloride 84 L, Carbon Dioxide 37 H, Anion Gap 9.5, BUN 28 H, Creatinine 1.00, Estimated Creat Clear -25 L, Estimated GFR 54 L, Est GFR ( Amer) 65, Glucose 349 H, Calcium 10.0, Total Bilirubin 0.5, AST 31, ALT 13, Alkaline Phosphatase 130 H, Troponin I < 0.01, Total Protein 8.1, Albumin 3.9, Globulin 4.2 H, Albumin/Globulin Ratio 0.9 L 03/24/25 13:00 03/24/25 13:00 Orders (Tests/Meds): ED MEDICATIONS Discontinued Medications Generic Name Dose Route Start Last Admin Trade Name Freq PRN Reason Stop Dose Admin Hydrocodone Bitart/Acetaminophen 1 tab 03/24/25 12:10 03/24/25 12:54 Hydrocodone/Apap 5/325 Mg Tablet PO 03/24/25 12:11 1 tab ONCE ONE Administration ORDERS Category Date Time Status CT cervical spine wo con Stat Cat Scan 03/24/25 12:07 Completed XR humerus LT Stat Exams 03/24/25 12:08 Completed XR shoulder LT min 2V Stat Exams 03/24/25 12:07 Completed Complete Blood Count Auto Diff Stat Lab 03/24/25 13:00 Completed Comprehensive Metabolic Panel Stat Lab 03/24/25 13:00 Completed NT Pro Brain Natriuretic Pep. Stat Lab 03/24/25 13:00 Received Troponin I Stat Lab 03/24/25 13:00 Completed CA venous doppler UE LT Stat Y 03/24/25 12:08 Completed Medical Decision Narrative: 74-year-old female presents the emergency department with left shoulder/arm pain for 2 weeks, no trauma or injury per history, differential diagnosis include but not limited to acute shoulder impingement syndrome, shoulder fracture, humerus fracture, arm sprain/strain, cervical radiculopathy, upper extremity DVT, ACS, cardiac arrhythmia, electrolyte disturbance, osteoarthritis of the shoulder among others. I discussed this patient's case with the attending physician Will obtain basic lab [place] studies, proBNP, troponin, EKG, CT cervical spine without contrast, the left humerus, x-ray of the left shoulder, and upper extremity duplex ultrasound, give 5 mg p.o. Velpen for pain. I reviewed the patient's CT cervical spine without contrast along the corresponding radiologic report, minimal spondylolisthesis C3 on C4, broad-based midline disc protrusion with mild spinal canal compromise of mild to moderate bilateral neuroforaminal narrowing at C3-C4. I reviewed the patient's left humeral x-ray, left shoulder x-ray along with corresponding radiologic report, moderate osteoarthritis of the glenohumeral joint, no acute bony abnormality, overall degenerative changes of the shoulder without any acute bony abnormality. I reviewed the patient's upper extremity duplex ultrasound along the corresponding radiologic report, there is no evidence of thrombus in the venous system of the left upper extremity. CMP is noted for mild hyponatremia at 127, glycemia 349, patient has known T2DM, however corrected sodium is 131 at 133. Thus hyponatremia etiology may be pseudohyponatremia, BUN is elevated at 28, GFR 54 otherwise unremarkable CMP Troponin within normal limits at less than 0.01 CBC unremarkable Reexamination of patient at approximately 2:38 PM patient has had some improvement with her shoulder pain, after p.o. Velpen administration, she is requesting some additional p.o. narcotic medications to go home on, unfortunately discussed need to follow-up with PCP and orthopedic doctor/pain management if symptoms persist, for long-term pain management, recommend rest ibuprofen Tylenol, and anti-inflammatory medication as needed for pain, patient most likely has some degree of osteoarthritis of the glenohumeral joint on the left shoulder as well as may be some adhesive capsulitis, in the setting of some degenerative disease of her cervical spine, discussed all results with her at the bedside, patient follow-up PCP orthopedic doctor and return the emerged part any worsening signs or symptoms, patient's troponin and EKG within normal limits, no concern for atypical chest pain/ACS at this time as patient symptomatology going on for 2 weeks. Patient voiced understanding and agreement Contreet plan/discharge plan. Strict ED return precaution were given. Critical Care Critical Care Time Critical Care Time: No
--- NOTE | 2025-03-24 12:07 | XR_ITS ---
FINAL REPORT CLINICAL HISTORY: Left shoulder pain; hears popping when moving COMPARISON: None FINDINGS: LEFT SHOULDER 3 views of the left shoulder were obtained. There is no acute fracture or dislocation. There are mild hypertrophic changes of the acromioclavicular joint. Moderate narrowing of the glenohumeral joint space is noted. There is subchondral sclerosis and osteophyte formation. Soft tissues are unremarkable. IMPRESSION: Degenerative/chronic changes without acute bony abnormality. Reviewed, Interpreted and Dictated by Joel Jones MD Transcribed by Daria York Authenticated and [facility]
--- NOTE | 2025-03-24 12:07 | CT_ITS ---
FINAL REPORT TECHNIQUE: Axial images were obtained of the cervical spine by computed tomography. Coronal and sagittal reconstruction process performed. This study was performed with techniques to keep radiation doses as low as reasonably achievable (ALARA). Individualized dose reduction techniques using automated exposure control or adjustment of mA and/or kV according to the patient''s size were employed. CLINICAL HISTORY: Neck pain with left side radiculopathy COMPARISON: None FINDINGS: Mild disc space narrowing at C3-4. Grade 1 spondylolisthesis of C3 on C4. Moderate bilateral facet hypertrophy is particularly eccentric to the left. C2-3: Unremarkable. C3-4: Mild broad-based midline disc protrusion. Bilateral facet hypertrophy. Mild spinal canal compromise. Ebec-[id number] bilateral neural foraminal narrowing. C4-5: Unremarkable. C5-6: Unremarkable. C6-7: Unremarkable. C7-T1: Unremarkable. IMPRESSION: Minimal spondylolisthesis of C3 on C4. Broad-based midline disc protrusion with mild spinal canal compromise and ecop-sy-yffdztng bilateral neural foraminal narrowing at C3-4. Reviewed, Interpreted and Dictated by Joel Jones MD Transcribed by Daria York Authenticated and [facility]
--- NOTE | 2025-03-24 12:08 | XR_ITS ---
FINAL REPORT CLINICAL HISTORY: Left arm pain, hears popping when moving COMPARISON: None FINDINGS: Two views of the left humerus were obtained. There is no acute fracture or dislocation. There are moderate changes of osteoarthritis at the glenohumeral joint. There is no acute soft tissue abnormality. IMPRESSION: Moderate osteoarthritis at the glenohumeral joint. No acute bony abnormality. Reviewed, Interpreted and Dictated by Joel Jones MD Transcribed by Daria York Authenticated and [facility]
--- NOTE | 2025-03-24 12:08 | CA_ITS ---
FINAL REPORT TECHNIQUE: Graded compression, spectral analysis and ultrasound images of the venous system of the left upper extremity were obtained. CLINICAL HISTORY: Left arm swelling X 3 weeks, Obesity, No injury FINDINGS: The jugular vein, subclavian vein, axillary vein, brachial vein, cephalic vein and basilic venous system are fully compressible and demonstrate no evidence of thrombosis. IMPRESSION: No evidence of thrombosis of the venous system of the left upper extremity. Reviewed, Interpreted and Dictated by Joel Jones MD Transcribed by Daria York Authenticated and [facility]
--- NOTE | 2025-03-24 12:10 | PC.NURSE ---
I notified echo lab of the E US for dvt rule out.
--- NOTE | 2025-03-24 12:50 | PC.NURSE ---
pt was taken to US delaying blood work and meds. pt is now back in the room
[2025-03-24] MEDS: HYDROCODONE/APAP 5/325 MG TABLET 1 TAB PO (12:54)
--- NOTE | 2025-03-24 13:05 | PC.NURSE ---
1253 Pt returns from Ultrasound
--- NOTE | 2025-03-24 13:10 | ECG_ITS ---
APPROVED REPORT Exam: Resting ECG HR:71 bpm ECG Measurements Heart Rate 71 AXES AK 172 P 37 QRSd 103 QRS -24 QT 405 T 10 QTc 428 Conclusion SINUS RHYTHM LOW QRS VOLTAGE IN PRECORDIAL LEADS [QRS DEFLECTION < 1.0 mV IN CHEST LEADS] MINIMAL VOLTAGE CRITERIA FOR LVH, CONSIDER NORMAL VARIANT [MEETS CRITERIA IN ONE OF: R(aVL), S(V1), R(V5), R(V5/V6)+S(V1)] POSSIBLE ANTERIOR MYOCARDIAL INFARCTION , PROBABLY OLD [30 ms Q WAVE IN V3/V4, OR R < 0.2 mV IN V4] No STEMI Electronically signed by : BECK ZHENG, 03/25/2025 06:41:19
[2025-03-24 13:46] LABS: Hematocrit 34.0 % (37.0-47.0); Hemoglobin 10.2 g/dL (12.2-16.2); Immature Granulocytes % 0.6 %; Mean Corpuscular HGB Conc 30.0 g/dL (31.8-35.4); Mean Corpuscular Hemoglobin 25.6 pg (27.0-31.2); Mean Corpuscular Volume 85.4 fl (81-99); Nucleated Red Blood Cells % 0 %; Platelet Count 262 K/mm3 (142-424); Red Blood Count 3.98 M/mm3 (4.20-5.40); Red Cell Distribution Width-SD 53.1 fL; White Blood Count 8.5 K/mm3 (4.8-10.8)
[2025-03-24 13:56] LABS: Albumin Level 3.9 g/dl (3.5-5.0); Chloride 84 mmol/L (98-107); Potassium 3.5 mmoL/L (3.5-5.1); Sodium 127 mmol/L (136-145)
[2025-03-24 13:58] LABS: Blood Urea Nitrogen 28 mg/dl (7-17); Creatinine Clearance Estimated -25 mL/min (50-200); Creatinine,Serum 1.00 mg/dl (0.52-1.04); Estimated Glomerular Filt Rate 54 ml/min (>60); GFR (African American) 65 ML/MIN (>60)
[2025-03-24 13:59] LABS: Alanine Aminotransferase 13 U/L (12-78); Albumin/Globulin Ratio 0.9 (1.1-1.8); Alkaline Phosphatase 130 U/L (38-126); Anion Gap 9.5 mEq/L (5-15); Aspartate Amino Transferase 31 U/L (14-36); Bilirubin,Total 0.5 mg/dl (0.2-1.3); Calcium 10.0 mg/dl (8.4-10.2); Carbon Dioxide 37 mmol/L (22.0-30.0); Globulin 4.2 g/dL (1.3-3.2); Glucose 349 mg/dl (74-100); Total Protein,Serum 8.1 g/dl (6.3-8.2)
[2025-03-24 14:12] LABS: Troponin I < 0.01 ng/ml (0.00-0.034)
[2025-03-24 14:54] VITALS: BP 108/58; PULSE 72; RESP 18; TEMP 36.7; O2SAT 94
[2025-03-24 17:09] LABS: NT Pro Brain Natriuretic Pep. 402 pg/mL (0-450)
== END 2025-03-24 14:53 | disposition home or self-care (01) ==
PROVIDERS: Physician Assistant; Emergency Provider Student in an Organized Health Care Education/Training Program; PCP Physician Assistant
DX: M79.602 Pain in left arm (principal); M47.812 Spondylosis without myelopathy or radiculopathy, cervical region; M19.012 Primary osteoarthritis, left shoulder; E87.1 Hypo-osmolality and hyponatremia; E11.65 Type 2 diabetes mellitus with hyperglycemia
CPT/HCPCS: 72125; 73030; 73060; 80053; 83880; 84484; 85025; 93005; 93971; 99285

== ENCOUNTER 2025-04-07 10:15 | Outpatient (POV) | payer MEDICARE, SELFPAY ==
--- OUTSIDE RECORDS SUMMARY | 2025-04-07 10:35 | XMS_ITS | Clinical Summary ---
Author Organization [facility] Address [address] [place] [address] Care Team Providers Care Sales Coach Name Role Phone CornellGiselle APRN Primary Care [...] 06/24/2015 HEPATITIS C SCREENING Completed 07/24/2023 Insurance [facility] MEDICAID [employer] MEDICARE ADVANTAGE Care Teams Sales Coach Relationship Specialty Start Date End Date Giselle Sarabia APRN [address] [place] [address] PCP - General Family Medicine 11/06/23
--- OUTSIDE RECORDS SUMMARY | 2025-04-07 10:35 | XMS_ITS | Clinical Summary ---
Author Organization [facility] Address [address] [place] [address] Care Team Providers Care Package Sealer Name Role Phone Giselle Sarabia APRN Primary Care Provider [phone] Allergies Active Allergy Reactions Criticality Noted Date [...] week 10/12/2024 How often do you attend [facility] or christianity services? More than 4 times per year [...] and heating? Not hard at all 10/12/2024 [facility] - Occupational Stress [...] place to sleep or slept in a detention (including now)? 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) to steady your nerves or to get [...] (2 - Td or Tdap) 01/21/2023 01/21/2013 [id number] Vaccine (3 - season) 2024 11/18/2020, 10/18/2020 [...] this topic Medical Devices Implanted Type Area Office Machine Service Supervisor Device Identifier Shelf Expiration Date Model [...] 9.3(H) <5.7 % 10/12/2024 6:21 AM EST [facility] Blood Venous blood specimen / Unknown Venipuncture / Unknown 10/12/2024 5:13 AM EST 10/12/2024 5:19 AM EST Narrative [facility] - 10/12/2024 6:21 AM EST HA1C Interpretive Data: Diagnosis of Diabetes: Diabetic > or = 6.5% Pre-diabetic 5.7 to 6.4% Non-diabetic < or = 5.6% Glycemic Targets for Type I and Type II Diabetics: Non- Adults <7.0% Adults <6.0% Children and Adolescents <7.5% Source: [place]. Standards of medical care in diabetes,2017. Diabetes Care.2017:40 (suppl 1):S1-S135. HbA1c assay performed by an ion-exchange chromatography method that is certified traceable to the DCCT. Bradley Yi APRN LAB BLOOD ORDERABLES Final Result [facility] [address] [place] [address] * Acute Hepatitis Panel (07/24/2023 4:43 PM [...] ORDERABLE S Final Result Performing Organization Address City/[facility] de Phone Number [facility] [address] [place] [address] from Last 3 Months or Most Recently Relevant to Health Maintenance Insurance [facility] Advance Directives * Full [...] Patient has decision-making capacity? Yes Care Teams Package Sealer Relationship Specialty Start Date End Date Giselle Sarabia APRN [address] [place] [address] PCP - General 08/06/23
[2025-04-07 11:03] VITALS: BP 139/64; PULSE 74; RESP 18; O2SAT 98; BMI 40.9
--- NOTE | 2025-04-07 12:43 | EXP.PAIN.OV ---
HPI Data of Consult Patient: new to practice Consult date: 04/07/25 Requesting Physician: Trudy Ferrera APRN Primary Care Provider: CHANDAN Benito Reason for consult: Left-sided neck pain, left shoulder pain, chronic low back pain History of present illness: Ms. Cates is a 74 year old female who presents today as a new patient. She is a referral from Sepideh Lawrence's office. She rates her pain today an 8 out of 10. Patient states that a lot of her symptoms started initially related to right ankle pain. Patient was having a lot of issues with this but then that did resolve and then she started noticing worsening pain in her left shoulder, the left side of her neck and is complaining of numbness and tingling into her arm. Patient does state the pain is unbearable and she has very limited range of motion of her shoulder. Patient states that she has to physically move her left arm with her right arm. Patient denies any specific injury or trauma that initially started this. Patient states that it is constant with numbness and that she can only elevate her arm so high before having severe pain. She does state the pain is interfering with her ability perform activities of daily living such as cooking and cleaning. Patient denies any history of injections in these locations or surgical intervention. Patient has had some imaging. Patient is currently trying [id number] and prescription medications including tramadol, Tylenol, ibuprofen with minimal changes. Patient is interested in any options we may be able to try. Her Teto has been reviewed and is appropriate. Pain at rest (0-10 scale): 8 Has patient had previous pain injection?: No Conservative treatment options previously tried: Home exercise plan (Longer than 12 weeks) cc:: CC: Trudy Ferrera APRN [facility] Disclaimer: The information contained in this section may have been updated after the patient was seen, as this information can be updated by other users. Medical History (Updated 04/07/25 @ 12:05 by yL Ojeda RN) Cataract WING (obstructive sleep apnea) Rheumatoid arteritis Osteoarthritis CKD (chronic kidney disease) CHF (congestive heart failure) HTN (hypertension) Depression Anxiety Anemia Gout HLD (hyperlipidemia) Vitamin D deficiency Vitamin B deficiency Diabetes Surgical History (Updated 04/07/25 @ 12:05 by Ly Ojeda RN) Joint replaced Hx of cholecystectomy H/O bladder repair surgery Family History (Updated 04/07/25 @ 12:01 by Ly Ojeda RN) Other Aneurysm Malignant tumor of pharynx Social History (Updated 04/07/25 @ 12:06 by Ly Ojeda RN) Smoking Status: Never smoker alcohol intake: never current occupational status: unemployed Travel in the last 8 weeks?: None Have you lived/traveled outside US in past 30 days?: No Contact w/someone who lives/traveled outside US past 30 days?: No Exposure to someone with infectious disease in past 14 days?: No Do you have a fever (greater than 100.4 F or 38 C)?: No Have you tested positive for COVID-19?: No Exposed to someone with COVID-19 in past 14 days?: No Do you have a sore throat?: No Do you have a cough?: No Do you have any weakness?: No Are you experiencing any nausea/vomitting?: No Do you have any diarrhea?: No Are you experiencing any unusual bleeding?: No Do you have any muscle aches/pain?: No Do you have any abdominal pain?: No Are you experiencing loss of taste or smell?: No Review of Systems Review of Systems Review of systems:: pertinent systems reviewed and negative unless documented below Review of systems (narrative): Review of Systems: General: No recent weight changes, no fever, no sleep disturbances Respiratory: No cough, no shortness of air, no recurring pulmonary infections Cardiovascular/peripheral vascular: No chest pain, no palpitations, no edema, no shortness of breath Gastrointestinal: No new onset incontinence, normal bowel movements reported Genitourinary: No new onset incontinence Musculoskeletal: Left shoulder pain, left arm numbness, left-sided neck pain Psychiatric: [Normal mood/affect] Neurological: [Denies weakness in extremities], [denies balance issues] Meds Home Medications and Allergies Home Medications ?Medication ?Instructions ?Recorded ?Confirmed ?Type alendronate 70 mg tablet 70 mg PO WEEKLY 03/24/25 04/07/25 History allopurinol 300 mg tablet 300 mg PO DAILY 03/24/25 04/07/25 History atorvastatin 10 mg tablet 10 mg PO DAILY 03/24/25 04/07/25 History celecoxib 100 mg capsule 100 mg PO DIRECTED 03/24/25 04/07/25 History cyanocobalamin (vitamin B-12) 1,000 mcg SQ MONTHLY 03/24/25 04/07/25 History 1,000 mcg/mL injection solution dapagliflozin propanediol 10 mg 10 mg PO DAILY 03/24/25 04/07/25 History tablet (Farxiga) finerenone 20 mg tablet (Kerendia) 20 mg PO DAILY 03/24/25 04/07/25 History gabapentin 600 mg tablet 600 mg PO TID 03/24/25 04/07/25 History insulin NPH isoph U-100 human 100 100 unit SQ TID 03/24/25 04/07/25 History unit/mL (3 mL) subcutaneous pen (Novolin N FlexPen) pen needle, diabetic 31 gauge x 03/24/25 04/07/25 History 3/16 potassium chloride 10 mEq 10 meq PO DAILY 03/24/25 04/07/25 History tablet,extended release(part/cryst) ropinirole 1 mg tablet 1 mg PO TID 03/24/25 04/07/25 History tirzepatide 2.5 mg/0.5 mL 2.5 mg SQ WEEKLY 03/24/25 04/07/25 History subcutaneous pen injector (Mounjaro) tirzepatide 5 mg/0.5 mL 5 mg SQ WEEKLY 03/24/25 04/07/25 History subcutaneous pen injector (Mounjaro) tramadol 50 mg tablet 50 mg PO BID 03/24/25 04/07/25 History trazodone 50 mg tablet 50 mg PO ACHS 03/24/25 04/07/25 History New Prescriptions to Start Prescriptions: Allergies Allergy/AdvReac Type Severity Reaction Status Date / Time CORTISONE Allergy Unknown ELEVATED Uncoded 08/06/17 14:58 BLOOD PRESSURE PREDNISONE Allergy Unknown ELEVATED Uncoded 08/06/17 14:58 BLOOD PRESSURE Objective Vital signs: Pulse Resp BP Pulse Ox O2 Del Method 74 18 139/64 98 Room Air 04/07/25 11:03 04/07/25 11:03 04/07/25 11:03 04/07/25 11:03 04/07/25 11:03 Narrative: Physical Exam: General: Alert and oriented x3, no acute distress, pleasant and cooperative Lungs: Respirations even and unlabored, symmetrical chest expansion Eyes: PERRL Musculoskeletal: Flexion and extension of left shoulder somewhat guarded secondary to pain, [antalgic gait noted] Neurological: Speech clear, no gross sensory deficit Additional findings Additional findings: FINDINGS: LEFT SHOULDER 3 views of the left shoulder were obtained. There is no acute fracture or dislocation. There are mild hypertrophic changes of the acromioclavicular joint. Moderate narrowing of the glenohumeral joint space is noted. There is subchondral sclerosis and osteophyte formation. Soft tissues are unremarkable. IMPRESSION: Degenerative/chronic changes without acute bony abnormality. Reviewed, Interpreted and Dictated by Joel Jones MD Transcribed by Daria York Authenticated and . [facility] FINDINGS: Mild disc space narrowing at C3-4. Grade 1 spondylolisthesis of C3 on C4. Moderate bilateral facet hypertrophy is particularly eccentric to the left. C2-3: Unremarkable. C3-4: Mild broad-based midline disc protrusion. Bilateral facet hypertrophy. Mild spinal canal compromise. [id number] bilateral neural foraminal narrowing. C4-5: Unremarkable. C5-6: Unremarkable. C6-7: Unremarkable. C7-T1: Unremarkable. IMPRESSION: Minimal spondylolisthesis of C3 on C4. Broad-based midline disc protrusion with mild spinal canal compromise and [id number] bilateral neural foraminal narrowing at C3-4. Reviewed, Interpreted and Dictated by Joel Jones MD Transcribed by Daria York Authenticated and . [facility] Assessment and Plan *Assessment and plan (1) Localized osteoarthritis of left shoulder: Status: Acute Category: Medical Code(s): M19.012 - Primary osteoarthritis, left shoulder Plan Patient is experiencing significant pain in her left shoulder with very limited range of motion. Patient did have popping with flexion and extension exercises today. Patient did also have very limited range of motion and could not raise her arm more than 45 degrees. I did discuss with patient that I do believe she would benefit from a left shoulder intra-articular injection. Patient has had x-ray imaging that did show degenerative changes and with her symptoms during today's exam I do think she would get beneficial relief with these injections. Risk and benefits were discussed with the patient and she would like to proceed forward with this plan of care. Patient has tried and failed conservative therapy including oral medication, heat and ice, topicals, at home stretching exercises for longer than 6 weeks. Patient is not a candidate for ongoing physical therapy due to the very limited range of motion and severe pain with movement. Patient will be ordered a compounded cream and also send in a 2-week dose of baclofen 5 mg 3 times daily as needed. Patient will be scheduled for a left shoulder intra-articular injection without fluoroscopic or ultrasound guidance. Patient agrees with this plan of care. Patient has been instructed to contact the clinic with any concerns before the next appointment. Dr. Fuentes has reviewed this note and agrees with this plan of care. This note was dictated using voice recognition software and make contain errors or omissions. All injections are used with Lidocaine, Bupivacaine and dexamethasone. Occasionally urine drug screen is needed to verify patient's compliance with our office pain contract. This is ordered based off specific treatments related to chronic pain with the potential to abuse certain medications.
== END 2025-04-07 23:59 | disposition home or self-care (01) ==
PROVIDERS: PCP Physician Assistant; Visit Provider Nurse Practitioner Family
DX: M19.012 Primary osteoarthritis, left shoulder (principal); Z79.891 Long term (current) use of opiate analgesic
CPT/HCPCS: 99202; G0463

== ENCOUNTER 2025-05-02 23:41 | Emergency (ER) | payer MEDICARE, SELFPAY ==
[2025-05-03] VITALS: BP 182/99; PULSE 115; RESP 16; TEMP 36.6; O2SAT 96; BMI 39.6
[2025-05-03] MEDS: LIDOCAINE 5% TRANSDERMAL PATCH 1 EACH TD (00:04)
[2025-05-03 00:30] VITALS: BP 148/78; PULSE 84; RESP 17; TEMP 37.1; O2SAT 95
--- NOTE | 2025-05-03 02:02 | [facility].EDGENADL ---
Discharge Plan Disposition Patient Disposition: Home, Self-Care Condition: Good Prescriptions Prescriptions: New lidocaine 5 % adhesive patch,medicated See Rx Instructions .ROUTE .COMPLEX Qty: 15 0RF Rx Instructions: Apply to most painful area and leave on for 12 hours. Remove and leave off for 12 hours before using a new patch. No Action gabapentin 600 mg tablet 600 mg PO TID Patient Comments: TAKE 1 TABLET BY MOUTH 3 TIMES A DAY ropinirole 1 mg tablet 1 mg PO TID Patient Comments: TAKE 1 TABLET 3 TIMES A DAY BY ORAL ROUTE DIRECTED FOR 90 DAYS, FOR RESTLESS LEGS. trazodone 50 mg tablet 50 mg PO ACHS Patient Comments: TAKE 1 TABLET BY MOUTH EVERY DAY AT BEDTIME FOR 30 DAYS atorvastatin 10 mg tablet 10 mg PO DAILY Patient Comments: TAKE 1 TABLET BY MOUTH EVERYDAY AT BEDTIME alendronate 70 mg tablet 70 mg PO WEEKLY Patient Comments: TAKE 1 TABLET BY MOUTH EVERY WEEK tramadol 50 mg tablet 50 mg PO BID Patient Comments: TAKE 1 TABLET BY MOUTH TWICE A DAY cyanocobalamin (vitamin B-12) 1,000 mcg/mL solution 1,000 mcg SQ MONTHLY Patient Comments: INJECT 1 ML BY SUBCUTANEOUS ROUTE EVERY MONTH allopurinol 300 mg tablet 300 mg PO DAILY Patient Comments: TAKE 1 TABLET EVERY DAY BY ORAL ROUTE DIRECTED FOR 90 DAYS, FOR GOUT. celecoxib 100 mg capsule 100 mg PO DIRECTED Patient Comments: TAKE 1 CAPSULE BY MOUTH EVERY DAY DIRECTED Novolin N FlexPen 100 unit/mL (3 mL) insulin pen 100 unit SQ TID Patient Comments: INJECT 20 UNITS 3 TIMES A DAY BY SUBCUTANEOUS ROUTE DIRECTED FOR 30 DAYS, FOR WITH MEALS. potassium chloride 10 mEq tablet,ER particles/crystals 10 meq PO DAILY Patient Comments: TAKE 1 TABLET BY MOUTH EVERY DAY (DME) pen needle, diabetic [BD Ultra-Fine Mini Pen Needle] 31 gauge x 3/16 needle MISCELLANEOUS dapagliflozin propanediol [Farxiga] 10 mg tablet 10 mg PO DAILY Patient Comments: TAKE 1 TABLET EVERY DAY BY MOUTH FOR 90 DAYS FOR DIABETES/KIDNEYS. Kerendia 20 mg tablet 20 mg PO DAILY Patient Comments: TAKE 1 TABLET EVERY DAY BY MOUTH FOR 90 DAYS, FOR DIABETES/KIDNEYS. Mounjaro 2.5 mg/0.5 mL pen injector 2.5 mg SQ WEEKLY Patient Comments: INJECT 0.5 ML SUBCUTANEOUSLY ONE TIME PER WEEK FOR 28 DAYS Mounjaro 5 mg/0.5 mL pen injector 5 mg SQ WEEKLY Patient Comments: INJECT 0.5 ML SUBCUTANEOUSLY ONE TIME PER WEEK FOR 28 DAYS baclofen 5 mg tablet 5 mg PO TID Qty: 42 0RF methocarbamol 500 mg tablet 500 mg PO TID Qty: 42 0RF Referrals Follow up/Referrals: Sepideh Lawrence PA [Primary Care Provider, Medical] - See instructions Activity Restrictions/Add. Instructions Additional Instructions/Restrictions: You were evaluated in the ER and are believed to be appropriate for discharge at this time. Continue taking your home medications as prescribed. Use the prescribed lidocaine patches as directed. Remove the lidocaine patch that you currently have on at noon. Follow-up with Dr. Fuentes as scheduled. Also follow-up with Dr. Alegria's office. Call your primary care office first thing Saturday morning and make an appointment with them to be reevaluated and to get scheduled for an MRI. Return to the ER with new, worsening, or otherwise concerning symptoms. Clinical Impressions Clinical Impression: Left sided sciatica, Arm pain, left Print Language Print Language: Cuban Discharge ED Provider: Salvatore Cordoba General Adult HPI General Chief complaint: PAIN Stated complaint: left shoulder and left hip pain,no injury Time Seen by Provider: 05/02/25 23:45 Mode of Arrival: Ambulatory Source of Information: Patient Description of Symptoms (Recalled from ER Triage Doc. by RN): Hip Pain Pt presnets to the ED with c/o chronic L sided hip pain. History of Present Illness HPI narrative: 74-year-old female presents to the ER complaining of left arm pain, left hip pain. Patient has previously been evaluated for these problems. She reports she was here 1 month ago for her left shoulder/arm pain. She states it has been constant and unchanged since that time. She states she is following up with Dr. Mirza but that they are trying other things before proceeding with any additional procedures. She states she has not been able to get on the schedule with Dr. Alegria either. Patient already takes gabapentin, tramadol, muscle relaxer. She describes tingling, shooting pain down the left arm, it is not specifically relieved or exacerbated by anything and is unchanged since she was evaluated 1 month ago. She knows that it is due to arthritis and other chronic pain syndrome but was hoping to get relief from the pain tonight. She also has been having pain from the left hip radiating down the back of the left leg. She has no numbness, tingling, or weakness. No bowel or bladder incontinence, no saddle anesthesia. No falls or traumatic injuries. This pain has also been going on for multiple weeks. No other complaints or concerns. No recent illness, no fevers or chills, no history of IV drug use. Related Data Home Medications ?Medication ?Instructions ?Recorded ?Confirmed alendronate 70 mg tablet 70 mg PO WEEKLY 03/24/25 04/07/25 allopurinol 300 mg tablet 300 mg PO DAILY 03/24/25 04/07/25 atorvastatin 10 mg tablet 10 mg PO DAILY 03/24/25 04/07/25 celecoxib 100 mg capsule 100 mg PO DIRECTED 03/24/25 04/07/25 cyanocobalamin (vitamin B-12) 1,000 mcg SQ MONTHLY 03/24/25 04/07/25 1,000 mcg/mL injection solution dapagliflozin propanediol 10 mg 10 mg PO DAILY 03/24/25 04/07/25 tablet (Farxiga) finerenone 20 mg tablet (Kerendia) 20 mg PO DAILY 03/24/25 04/07/25 gabapentin 600 mg tablet 600 mg PO TID 03/24/25 04/07/25 insulin NPH isoph U-100 human 100 100 unit SQ TID 03/24/25 04/07/25 unit/mL (3 mL) subcutaneous pen (Novolin N FlexPen) pen needle, diabetic 31 gauge x 03/24/25 04/07/25 3/16 potassium chloride 10 mEq 10 meq PO DAILY 03/24/25 04/07/25 tablet,extended release(part/cryst) ropinirole 1 mg tablet 1 mg PO TID 03/24/25 04/07/25 tirzepatide 2.5 mg/0.5 mL 2.5 mg SQ WEEKLY 03/24/25 04/07/25 subcutaneous pen injector (Mounjaro) tirzepatide 5 mg/0.5 mL 5 mg SQ WEEKLY 03/24/25 04/07/25 subcutaneous pen injector (Mounjaro) tramadol 50 mg tablet 50 mg PO BID 03/24/25 04/07/25 trazodone 50 mg tablet 50 mg PO ACHS 03/24/25 04/07/25 Previous Rx's ?Medication ?Instructions ?Recorded baclofen 5 mg tablet 5 mg PO TID #42 tabs 04/07/25 methocarbamol 500 mg tablet 500 mg PO TID #42 tabs 04/08/25 lidocaine 5 % topical patch See Rx Instructions topical 05/03/25 .COMPLEX #15 ea Allergies Allergy/AdvReac Type Severity Reaction Status Date / Time amoxicillin (From Augmentin) AdvReac Anaphylaxis Verified 05/03/25 00:05 clavulanic acid (From AdvReac Anaphylaxis Verified 05/03/25 00:05 Augmentin) CORTISONE Allergy Unknown ELEVATED Uncoded 08/06/17 14:58 BLOOD PRESSURE PREDNISONE Allergy Unknown ELEVATED Uncoded 08/06/17 14:58 BLOOD PRESSURE [facility] Disclaimer: The information contained in this section may have been updated after the patient was seen, as this information can be updated by other users. Medical History (Updated 05/03/25 @ 00:02 by Neva Ortega MD) Cataract WING (obstructive sleep apnea) Rheumatoid arteritis Osteoarthritis CKD (chronic kidney disease) CHF (congestive heart failure) HTN (hypertension) Depression Anxiety Anemia Gout HLD (hyperlipidemia) Vitamin D deficiency Vitamin B deficiency Diabetes Surgical History (Updated 04/07/25 @ 12:05 by Ly Ojeda RN) Joint replaced Hx of cholecystectomy H/O bladder repair surgery Family History (Updated 04/07/25 @ 12:01 by Ly Ojeda RN) Other Aneurysm Malignant tumor of pharynx Social History (Updated 04/07/25 @ 12:06 by Ly Ojeda RN) Smoking Status: Never smoker alcohol intake: never current occupational status: unemployed Travel in the last 8 weeks?: None Other Medical History Have you received the Flu Vaccine for this season: Yes Have you received the Pneumonia Vaccine: Yes ROS Obtained: Yes Systems reviewed as appropriate & no additional complaints except as documented Per HPI Physical Exam General General appearance: alert and in no apparent distress Head Head exam: atraumatic and normocephalic Eye Eye exam: Present PERRL and EOMI ENT ENT exam: Present mucous membranes moist Neck Neck exam: Present normal inspection and full ROM Chest Chest inspection: Present symmetric chest wall rise Respiratory Respiratory exam: Present normal lung sounds bilaterally; Absent respiratory distress, wheezes or stridor Cardiovascular Cardiovascular exam: Present regular rate and normal rhythm Abdominal Exam Abdominal exam: Present soft; Absent distention or tenderness Extremities Exam Extremities exam: Present full ROM, tenderness (Left trapezius muscle with no cervical pain, full range of motion of the neck, no evidence of traumatic injury, tenderness behind the left hip within the muscle but no traumatic injury) and normal capillary refill; Absent joint swelling or calf tenderness Back Exam Back exam: Present paraspinal tenderness (Left lumbar and into the left gluteal area) and sciatic notch tenderness (L); Absent CVA tenderness (R), CVA tenderness (L) or sciatic notch tenderness (R) Neurological Exam Neurological exam: Present alert, oriented X3 and other (No saddle anesthesia, full strength in all extremities); Absent motor sensory deficit Psychiatric Psychiatric exam: Present normal affect and normal mood Skin Skin exam: Present warm and dry Medical Decision Making Medical Records Medical records reviewed: Yes I reviewed the patient's medical records. Screening: Per USPSTF and CDC recommendations, given the prevalence of disease in our region, it is our hospital?s policy to screen for HIV and viral Hepatitis for all patients aged 18 and over and those with ongoing risk factors. MR Comment: Recent evaluation in the ER with labs and imaging that demonstrated spondylolisthesis of the cervical spine, nonactionable labs, patient discharged with recommendations for outpatient follow-up. Teto Inquiry Pt receiving controlled substance: No Vital Signs: 05/03/25 00:00 05/03/25 00:30 Temperature 97.8 F 98.7 F Temperature Source Oral Pulse Rate 84 Pulse Rate [Left] 115 H Respiratory Rate 16 17 Blood Pressure 148/78 H Blood Pressure [Right Arm] 182/99 H Blood Pressure Mean [Right Arm] 126 Blood Pressure Source Automatic Cuff Blood Pressure Source [Right Arm] Automatic Cuff Blood Pressure Position Sitting Blood Pressure Position [Right Arm] Sitting 02 Sat by Pulse Oximetry 96 Oxygen Delivery Method Room Air Room Air Orders (Tests/Meds): ED MEDICATIONS Discontinued Medications Generic Name Dose Route Start Last Admin Trade Name Freq PRN Reason Stop Dose Admin Lidocaine 1 each 05/02/25 23:58 05/03/25 00:04 Lidocaine 5% Transdermal Patch TD 05/02/25 23:59 1 each ONCE ONE Administration Medical Decision Narrative: In summary, [id number] female with history of cervical spondylolisthesis, chronic pain, previous knee replacements presents to the emergency department today with shooting left shoulder and arm pain with no traumatic injury, shooting pain in the left hip radiating down the left leg, these symptoms are chronic and unchanged recently. On initial evaluation patient is hemodynamically stable, afebrile, overall well-appearing aside from obesity, patient has tenderness in the left trapezius muscle, tenderness in the left lumbar paraspinal muscle and left gluteal area but no lumbar bony tenderness, mild sciatic notch tenderness on the left, no cervical tenderness. No neurologic deficits, no saddle anesthesia. Differential diagnosis includes but is not limited to arthritis, degenerative changes, radiculopathy, sciatica, piriformis syndrome, cervical spondylolisthesis, I have considered the possibility for acute traumatic injury but patient has no traumatic event that would have caused this, her pain symptoms have been chronic and unchanged since prior workup so I do not believe she requires labs or imaging for her left upper extremity pain. I considered imaging for her left leg pain since she reports this is new in the last few weeks but she does not have evidence of traumatic injury, no neurologic deficits, I have considered cauda equina but she has no red flag symptoms, no saddle anesthesia, no bowel or bladder incontinence, she was ambulatory in the ER. Patient already takes controlled substances for her pain. I had extensive discussion with patient and her family at bedside about the limited abilities of the ER to manage chronic symptoms like this. I explained to her the underlying etiology of her symptoms and the necessity of close outpatient follow-up including continuing to follow-up with Dr. Fuentes with pain management and with her orthopedic team. Patient is already taking naproxen, tramadol, gabapentin, muscle relaxers at home. I provided lidocaine patch in the ER. Her symptoms are tolerable and patient is appropriate for discharge at this time. She is comfortable with this plan. I reiterated the importance of continued home medication use, follow-up with the appropriate outpatient providers, gave a prescription for lidocaine patches, and strict return precautions for the ER. Patient and family indicated understanding and the patient was discharged in stable condition. Critical Care Critical Care Time Critical Care Time: No
== END 2025-05-03 00:32 | disposition home or self-care (01) ==
LOC: ER 05-04 08:22
PROVIDERS: Emergency Provider Emergency Medicine; PCP Physician Assistant
DX: M79.602 Pain in left arm (principal); M54.32 Sciatica, left side
CPT/HCPCS: 99283